=== PATIENT | female | born 1950 | race Hispanic/Latino ===

== ENCOUNTER → 2022-04-02 | Outpatient (CLI) | payer OTHER, MEDICARE ==
[2022-04-02 11:52] LABS: CREATININE 0.7 mg/dL (0.5-1.5)
== END | disposition home or self-care (01) ==
LOC: LAB 09:59
PROVIDERS: ATTEND Otolaryngology Plastic Surgery within the Head & Neck
DX: J39.2 Other diseases of pharynx (principal); R25.2 Cramp and spasm
CPT/HCPCS: 36415; 82565; 84520

== ENCOUNTER → 2022-04-10 | Outpatient (CLI) | payer OTHER, MEDICARE ==
[~2022-04-10] MED LIST: IOHEXOL-350 50ML VIAL IV ONE
== END | disposition home or self-care (01) ==
LOC: RAH 10:03
PROVIDERS: ATTEND Otolaryngology Plastic Surgery within the Head & Neck
DX: J39.2 Other diseases of pharynx (principal); J34.89 Other specified disorders of nose and nasal sinuses; R25.2 Cramp and spasm
CPT/HCPCS: 70482; Q9967